=== PATIENT | female | born 1950 ===

== ENCOUNTER 2020-07-10 11:45 | Inpatient (IN) | payer OTHER ==
[~2020-07-10] VITALS: Ht 157.5 cm; Wt 92.5 kg
[2020-07-10] MEDS ORDERED: SYNTHROID50 MCG PO (13:59)
[2020-07-10] MEDS ORDERED: PROAIR HFA8.5 GM IH (14:00)
[2020-07-10] MEDS ORDERED: CLARITIN10 M1 PO (14:00)
[2020-07-10] MEDS ORDERED: SINGULAIR10 MG PO (14:00)
[2020-07-10] MEDS ORDERED: OMEGA-31000 MG PO (14:00)
[2020-07-10] MEDS ORDERED: LIPITOR20 MG PO (14:01)
[2020-07-10] MEDS ORDERED: NAPR500T14 PO (14:01)
== END 2020-07-20 18:36 | disposition home or self-care (01) | DRG 331 ==
LOC: SURH 07-17 06:00 → O/R 07-17 06:00 → SURH 07-17 07:00 → SURG 07-17 11:16 → SURH 07-17 11:45 → O/R 07-17 14:24 → PED 07-17 16:20 → O/R 07-17 16:58 → SURH 07-17 20:20
PROVIDERS: ADMIT Colon & Rectal Surgery; ATTEND Colon & Rectal Surgery
PROC: 07BC4ZX Excision of Pelvis Lymphatic, Percutaneous Endoscopic Approach, Diagnostic (ICD-10-PCS; 2020-07-17)
PROC: 0DBF4ZZ Excision of Right Large Intestine, Percutaneous Endoscopic Approach (ICD-10-PCS; principal; 2020-07-17 07:00)
DX: D12.2 Benign neoplasm of ascending colon (principal); E03.9 Hypothyroidism, unspecified; Z68.37 Body mass index [BMI] 37.0-37.9, adult; E66.8 Other obesity